=== PATIENT | female | born 1995 | race Caucasian/White ===

== ENCOUNTER 2017-12-18 09:40 | Emergency (ER) | payer BC ==
[~2017-12-18] VITALS: Ht 157.5 cm; Wt 59.0 kg
[2017-12-18 09:40] VITALS: BP_SYST 130
--- NOTE | 2017-12-18 09:40 | NUR ---
[facility], ambulatory to chair 1.
--- NOTE | 2017-12-18 10:18 | NUR ---
Dr. Talamantes at bedside for evaluation
--- NOTE | 2017-12-18 11:27 | NUR ---
Family visiting at bedside, no acute distress. Awaiting xray results
[2017-12-18 11:56] VITALS: BP_SYST 125
--- NOTE | 2017-12-18 12:26 | NUR ---
Patient given written and verbal discharge instructions and verbalizes understanding. ER MD discussed with patient the results and treatment provided. Patient in stable condition. ID arm band removed. Rx of gilda see given. Patient educated on pain management and to follow up with PMD. Pain Scale 3/10. Opportunity for questions provided and answered.
== END 2017-12-18 11:56 | disposition home or self-care (01) ==
LOC: SED 09:40
DX: R07.89 Other chest pain (principal); M54.2 Cervicalgia; V89.2XXA Person injured in unspecified motor-vehicle accident, traffic, initial encounter; Y93.89 Activity, other specified; Y92.410 Unspecified street and highway as the place of occurrence of the external cause; Y99.8 Other external cause status
CPT/HCPCS: 71045; 72040-TC; 81025; 99284